=== PATIENT | male | born 1985 | race Caucasian/White ===

== ENCOUNTER 2022-11-01 13:10 | Emergency (ER) | payer OTHER, SELFPAY | END 2022-11-01 13:55 | disposition home or self-care (01) | LOC: NAV ERS 13:10 | DX: M54.42 Lumbago with sciatica, left side (principal); F17.200 Nicotine dependence, unspecified, uncomplicated; W01.0XXA Fall on same level from slipping, tripping and stumbling without subsequent striking against object, initial encounter; Y93.01 Activity, walking, marching and hiking | CPT/HCPCS: 99283 ==